=== PATIENT | male | born 1960 | race Caucasian/White ===

== ENCOUNTER 2018-04-20 08:55 | Emergency (ER) | payer OTHER, SELFPAY ==
[2018-04-20 09:46] LABS: Hemoglobin 14.9 g/dL (14.0-18.0); Mean Corpuscular HGB CONC 34.8 g/dL (32.0-36.0); Mean Corpuscular Hemoglobin 33.1 pg (27.0-31.0); Mean Platelet Volume 6.8 fL (7.4-10.4); Platelet Count 283 thou/uL (130-400); RBC Distribution Width 11.2 % (11.5-14.5); Red Blood Cell (RBC) Count 4.49 mill/uL (4.70-6.10)
[2018-04-20 09:54] LABS: ALT (SGPT) 33 U/L (8-55); AST (SGOT) 21 U/L (5-34); Albumin 3.8 g/dL (3.5-5.0); Alkaline Phosphatase 94 U/L (40-150); Anion Gap 9 mmol/L (10-20); BUN (Urea Nitrogen) 19 mg/dL (8.4-25.7); Bilirubin, Total 0.6 mg/dL (0.2-1.2); Calc. Creatinine Clearance 0 mL/min (70-130); Calcium 9.1 mg/dL (7.8-10.44); Carbon Dioxide 23 mmol/L (22-29); Chloride 105 mmol/L (98-107); Estimated GFR-MDRD 90; Globulin 3.8 g/dL (2.4-3.5); Glucose 157 mg/dL (70-105); Lipase 28 U/L (8-78); Protein, Total 7.6 g/dL (6.0-8.3); Sodium 133 mmol/L (136-145)
[2018-04-20 10:08] LABS: Band 12 % (5-11); Eosinophils 2 % (0-10); Lymphocytes 6 % (21-51); MDiff Complete? YES; Monocytes 6 % (0-10); Neutrophil 74 % (42-75); PLT Morphology Comment Appears Adequate; RBC Morphology Normal
[2018-04-20 10:27] LABS: Bilirubin Negative (Negative); Blood, Urine Negative (Negative); Clarity CLEAR (Clear); Glucose, Urine (Dipstick) Negative (Negative); Leukocyte Negative (Negative); Nitrite Positive (Negative); Protein, Urine (Dipstick) Negative (Neg-Trace); Specific Gravity, Urine 1.027 (1.002-1.036); pH, Urine 7.5 (5.0-9.0)
[2018-04-20 10:31] LABS: Bacteria/HPF 4+ HPF (None Seen); Hyaline Casts/LPF 0-3 HYALINE CAST LPF (0-3 Hyaline); Squamous Epithelial 0-3 HPF (0-3); WBC/HPF 0-3 HPF (0-3)
--- NOTE | 2018-04-20 12:03 | ULT ---
TESTICULAR ULTRASOUND: HISTORY: Right testicular pain. COMPARISON: None. TECHNIQUE: Hernandez scale, color flow, Doppler imaging, with spectral waveform analysis is performed of the left and right testicles. FINDINGS: RIGHT HEMISCROTUM: The right testicle has a homogeneous echotexture. No testicular mass. The right testicle measures 2 .7 x 2.8 x 4.9 cm. Heterogeneous echotexture of the epididymis measuring 1.4 x 2.0 cm. A small amou nt of fluid in the right hemiscrotum. LEFT HEMISCROTUM: Left testicle has a homogeneous echotexture. No intratesticular mass. The left testicle measures 2. 2 x 2.2 x 4.9 cm. The left epididymis has a normal echotexture measuring 1.0 x 1.1 cm. No significa nt fluid in the left hemiscrotum. There are vessels in the left scrotal wall which do not increase upon Valsalva. TESTICULAR DOPPLER: There is increased flow to the right testicle and epididymis. There is vascular flow to the left testicle. IMPRESSION: 1. Right epididymoorchitis. 2. Small right-sided hydrocele. POS: [facility]
== END 2018-04-20 10:55 | disposition home or self-care (01) ==
LOC: ERS 08:55
DX: N45.3 Epididymo-orchitis (principal); F17.210 Nicotine dependence, cigarettes, uncomplicated
CPT/HCPCS: 36415; 76870; 80053; 81003; 81015; 83690; 85025; 87077; 87086; 87186; 93976

== ENCOUNTER 2022-12-13 11:45 | Outpatient (CLI) | payer OTHER | END 2022-12-13 11:46 | disposition home or self-care (01) | LOC: PET 11:45 | PROVIDERS: ATTEND Specialist | DX: C05.1 Malignant neoplasm of soft palate (principal) | CPT/HCPCS: 78815; A9552 ==

== ENCOUNTER 2023-05-03 10:15 | Outpatient (CLI) | payer OTHER | END 2023-05-03 10:16 | disposition home or self-care (01) | LOC: PET 10:15 | PROVIDERS: ATTEND Radiology Radiation Oncology | DX: C05.1 Malignant neoplasm of soft palate (principal) | CPT/HCPCS: 78815; A9552 ==